=== PATIENT | female | born 1980 | race Caucasian/White ===

== ENCOUNTER 2016-10-26 16:09 | Emergency (ER) | payer OTHER ==
[2016-10-26 16:18] VITALS: RESP 16
[2016-10-26] MEDS ORDERED: NS 1,000 ML IV ONE (16:41)
--- NOTE | 2016-10-26 16:41 | EDPHY ---
H & P Time Seen by Provider: 10/26/16 16:35 HPI/ROS: Chief complaint. Dehydrated HPI. Patient is a 36-year-old female who is 11 weeks with an IVF . She was sent in by her physicians for concern of dehydration. She has had no vaginal bleeding. She has had nausea for 2 weeks and vomiting for 2 weeks with up to 5-6 mm sees per day. She has been taking B6 for about 10 days. She started taking units some 2 days ago. She also has tried acupuncture. She is not using Zofran secondary to possible heart defects as a side effect of Zofran. She has had decreased oral intake and decreased urination. She has slight right upper and left upper quadrant abdominal pain for several days. She also had a subchorionic hemorrhage 5 weeks ago then had a subsequent ultrasound which was normal. The patient is 5 para 1. ROS Constitutional. no fever/chills, no weakness Eyes. no problems with vision ENT. no sore throat, no nasal drainage Cardiovascular. no chest pain Respiratory. no shortness of breath, no cough Abdominal. Slight abdominal pain and nausea vomiting. No diarrhea . no problems urinating MS. no calf pain/swelling, no neck/back pain, no joint pain Skin. no rash Lymph. no swollen glands Neuro. no headache, no dizziness, no difficulty walking or with speech Past Medical/Surgical History: IV of , , factor to deficiency on Lovenox, hypothyroid Social History: , nonsmoker, no alcohol Smoking Status: Never smoked Physical Exam: General Appearance: Alert well-developed female mild distress vital signs are stable Eyes: Pupils equal and round no pallor or injection. ENT, mucous membranes are dry Respiratory: There are no retractions, lungs are clear to auscultation. Cardiovascular: Regular rate and rhythm. Gastrointestinal: Abdomen is soft and nontender, no masses, bowel sounds normal. Neurological: Awake and alert, sensory and motor exams grossly normal. Skin: Warm and dry, no rashes. Musculoskeletal: Neck is supple nontender. Extremities symmetrical, full range of motion. Psychiatric: Patient is oriented X 3, there is no agitation. Constitutional: Initial Vital Signs Temperature (C) 36.3 C 10/26/16 16:14 Heart Rate 62 10/26/16 16:14 Respiratory Rate 16 10/26/16 16:14 Blood Pressure 131/90 H 10/26/16 16:14 O2 Sat (%) 100 10/26/16 16:14 O2 Delivery Mode Room Air Allergies/Adverse Reactions: No Known Allergies Allergy (Unverified 02/18/11 10:49) Home Medications: Medication Instructions Recorded Levothyroxine [Synthroid] 50 mcg PO DAILY 02/18/11 Vit/Fe Fumarate/FA 1 each PO DAILY 02/18/11 [ Tablet] Aspirin [Aspirin 81mg (OTC)] 1 tab PO DAILY20 07/07/13 Docosahexanoic Acid [Algal-900 Dha] 300 mg PO DAILY 07/07/13 Heparin [Heparin Sodium] 10,000 unit SC BID 07/07/13 Medical Decision Making - Diagnostics Imaging: Limited abdominal ultrasound performed by me Indication is inability to get heart tones Suprapubic area is scan with ultrasound. Findings show good activity and reassuring heart rate approximately 140. Impression is normal intrauterine Procedures: IV with 1 L of normal saline and 1 L of D5 lactated Ringer's ED Course/Re-evaluation: Re-evaluation patient is stable. No nausea or vomiting. Re-evaluation at 7:00 p.m.. Patient has been up to urinate. Her urine sample is normal without evidence of infection. No further vomiting in the emergency department. The patient feels well enough to go home. Patient and I discussed treatment plan, criteria for return and importance of follow-up and further evaluation. She expresses understanding and agreement Differential Diagnosis: This is apparent hyperemesis gravidarum. I have considered dehydration, electrolyte abnormalities, intrauterine demise, urinary tract infection. The baby has good motion and heartbeat on my bedside ultrasound, her electrolytes are normal. No evidence for UTI. - Data Points Laboratory Results: Laboratory Results 10/26/16 16:40 10/26/16 16:40 10/26/16 10/26/16 10/26/16 17:45 16:40 16:40 WBC 9.93 10^3/uL H 10^3/uL (3.80-9.50) RBC 4.83 10^6/uL 10^6/uL (4.18-5.33) Hgb 15.2 g/dL g/dL (12.6-16.3) Hct 43.9 % % (38.0-47.0) MCV 90.9 fL fL (81.5-99.8) MCH 31.5 pg pg (27.9-34.1) MCHC 34.6 g/dL g/dL (32.4-36.7) RDW 12.1 % % (11.5-15.2) Plt Count 253 10^3/uL 10^3/uL (150-400) MPV 10.2 fL fL (8.7-11.7) Neut % (Auto) 63.3 % % (39.3-74.2) Lymph % (Auto) 27.6 % % (15.0-45.0) [place] % (Auto) 6.1 % % (4.5-13.0) Eos % (Auto) 2.4 % % (0.6-7.6) Baso % (Auto) 0.3 % % (0.3-1.7) Nucleat RBC Rel Count 0.0 % % (0.0-0.2) Absolute Neuts (auto) 6.28 10^3/uL 10^3/uL (1.70-6.50) Absolute Lymphs (auto) 2.74 10^3/uL 10^3/uL (1.00-3.00) Absolute Monos (auto) 0.61 10^3/uL 10^3/uL (0.30-0.80) Absolute Eos (auto) 0.24 10^3/uL 10^3/uL (0.03-0.40) Absolute Basos (auto) 0.03 10^3/uL 10^3/uL (0.02-0.10) Absolute Nucleated RBC 0.00 10^3/uL 10^3/uL (0-0.01) Immature Gran % 0.3 % % (0.0-1.1) Immature Gran # 0.03 10^3/uL 10^3/uL (0.00-0.10) Sodium 139 mEq/L mEq/L (134-144) Potassium 3.7 mEq/L mEq/L (3.5-5.2) Chloride 102 mEq/L mEq/L (97-110) Carbon Dioxide 23 mEq/l mEq/l (22-31) Anion Gap 14 mEq/L mEq/L (8-16) BUN 7 mg/dL mg/dL (7-23) Creatinine 0.6 mg/dL mg/dL (0.6-1.0) Estimated GFR > 60 Glucose 97 mg/dL mg/dL (70-100) Calcium 9.4 mg/dL mg/dL (8.5-10.4) Urine Color COLORLESS Urine Appearance CLEAR Urine pH 7.0 (5.0-7.5) Ur Specific [place] 1.001 L (1.002-1.030) Urine Protein NEGATIVE (NEGATIVE) Urine Ketones NEGATIVE (NEGATIVE) Urine Blood NEGATIVE (NEGATIVE) Urine Nitrate NEGATIVE (NEGATIVE) Urine Bilirubin NEGATIVE (NEGATIVE) Urine Urobilinogen NEGATIVE EU EU (0.2-1.0) Ur Leukocyte Esterase NEGATIVE (NEGATIVE) Ur Culture Indicated? NOT INDICATED (NI) Urine Glucose NEGATIVE (NEGATIVE) Medications Given: Discontinued Medications Sodium Chloride (Ns) 1,000 mls @ 0 mls/hr IV ONCE ONE PRN Reason: Wide Open Stop: 10/26/16 16:42 Last Admin: 10/26/16 16:42 Dose: 1,000 mls Departure - Departure Disposition: Home, Routine, Self-Care Clinical Impression: Hyperemesis gravidarum Condition: Good Instructions: Hyperemesis Gravidarum (ED) Additional Instructions: Frequent, small sips fluids well nauseated. Gradual diet advancement. Continue regular medications. Return for worsening symptoms. Recheck in 2 days if not able to keep fluids down and continuing to improve Referrals: Melissa Oliveira MD [Primary Care Provider] - 2-3 days, if not improved
[2016-10-26] MEDS ORDERED: D5W LR 1,000 ML IV SCH (16:45)
[2016-10-26 16:51] LABS: % IMMATURE GRANULYOCYTES 0.3 % (0.0-1.1); ABSOLUTE IMMATURE GRANULOCYTES 0.03 10^3/uL (0.00-0.10); ADD DIFF? NO; ADD MORPH? NO; ADD SCAN? NO; ATYPICAL LYMPHOCYTE FLAG 0 (0-99); FRAGMENT RBC FLAG 0 (0-99); HEMATOCRIT 43.9 % (38.0-47.0); HEMOGLOBIN 15.2 g/dL (12.6-16.3); LEFT SHIFT FLG 0 (0-99); LIPEMIA HEMOLYSIS FLAG 90 (0-99); MEAN CELL HEMOGLOBIN 31.5 pg (27.9-34.1); MEAN CELL HEMOGLOBIN CONCENTR. 34.6 g/dL (32.4-36.7); MEAN CELL VOLUME 90.9 fL (81.5-99.8); MEAN PLATELET VOLUME 10.2 fL (8.7-11.7); PLATELET CLUMPS FLAG 0 (0-99); PLATELET COUNT 253 10^3/uL (150-400); RED BLOOD CELL COUNT 4.83 10^6/uL (4.18-5.33); RED CELL DISTRIBUTION WIDTH 12.1 % (11.5-15.2)
[2016-10-26 17:06] LABS: ANION GAP 14 mEq/L (8-16); CALCIUM 9.4 mg/dL (8.5-10.4); CARBON DIOXIDE 23 mEq/l (22-31); CHLORIDE 102 mEq/L (97-110); CREATININE 0.6 mg/dL (0.6-1.0); GLOMERULAR FILTRATION RATE > 60; GLUCOSE 97 mg/dL (70-100); POTASSIUM 3.7 mEq/L (3.5-5.2); SODIUM 139 mEq/L (134-144)
[2016-10-26 18:14] LABS: COLOR COLORLESS; LEUKOCYTE ESTERASE,URINE NEGATIVE (NEGATIVE); NITRITE,URINE NEGATIVE (NEGATIVE)
[2016-10-26 19:24] VITALS: BP 122/73; PULSE 79; TEMP 97.9; O2SAT 98
== END 2016-10-26 19:24 | disposition home or self-care (01) ==
DX: O21.0 Mild hyperemesis gravidarum (principal); Z3A.11 11 weeks gestation of pregnancy; Z79.82 Long term (current) use of aspirin
CPT/HCPCS: 96365

== ENCOUNTER → 2016-11-06 | Outpatient (CLI) | payer OTHER | LOC: FIMAGING 12:02 | PROVIDERS: ATTEND Obstetrics & Gynecology | DX: O09.521 Supervision of elderly multigravida, first trimester (principal); O09.811 Supervision of pregnancy resulting from assisted reproductive technology, first trimester; Z3A.13 13 weeks gestation of pregnancy ==

== ENCOUNTER → 2016-12-25 | Outpatient (CLI) | payer OTHER | LOC: FIMAGING 10:34 | PROVIDERS: ATTEND Obstetrics & Gynecology | DX: O09.522 Supervision of elderly multigravida, second trimester (principal); O09.812 Supervision of pregnancy resulting from assisted reproductive technology, second trimester; O34.219 Maternal care for unspecified type scar from previous cesarean delivery ==

== ENCOUNTER → 2017-01-23 | Outpatient (CLI) | payer OTHER | LOC: FIMAGING 10:27 | PROVIDERS: ATTEND Obstetrics & Gynecology | DX: O09.522 Supervision of elderly multigravida, second trimester (principal); Z3A.23 23 weeks gestation of pregnancy; O99.282 Endocrine, nutritional and metabolic diseases complicating pregnancy, second trimester; E03.9 Hypothyroidism, unspecified ==

== ENCOUNTER 2017-01-29 18:59 | Observation (INO) | payer OTHER ==
--- NOTE | 2017-01-29 19:45 | OBPROG ---
OBG Progress Note Assessment/Plan: Assessment: 24 weeks feeling positive movement audible movement denies leaking bleeding cramping abdomen soft on palpation baseline heartrate 135 vs wnl consulted with dr. geronimo hernández on poc discharge to home with fu this week in the office patient in agreement with POC Plan:discharge to home with instructions fu in the office this week. Discussed reasons to return sooner. leaking bleeding cramping decreased movement. 01/29/17 19:40 Subjective: Denies feeling pain, leaking and cramping. States feeling movement FHR (bpm): 135 Membranes: Intact - Physical Exam General Appearance: WD/WN, alert, no apparent distress Respiratory: chest non-tender, lungs clear, normal breath sounds Cardiac/Chest: regular rate, rhythm Abdomen: normal bowel sounds Extremities: normal range of motion, Gumaro's sign (negative bilaterally) DTR- Lower Extremities: Knee (R): 1+, Knee (L): 1+ (no clonus bilaterally) Back: Normal inspection Skin: normal color, warm/dry Neuro/Psych: no motor/sensory deficits, alert, normal mood/affect, oriented x 3 ICD10 Worksheet Patient Problems: Problems Problem Status Onset Status post section Acute Thrombophilia Acute
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
== END 2017-01-29 19:56 | disposition home or self-care (01) ==
LOC: FLD 18:59
PROVIDERS: ADMIT Advanced Practice Midwife; ATTEND Advanced Practice Midwife
DX: Z03.79 Encounter for other suspected maternal and fetal conditions ruled out (principal); Z3A.24 24 weeks gestation of pregnancy
CPT/HCPCS: 59025; G0378

== ENCOUNTER 2017-02-13 16:33 | Observation (INO) | payer OTHER ==
[2017-02-13 17:25] LABS: % IMMATURE GRANULYOCYTES 1.1 % (0.0-1.1); ABSOLUTE IMMATURE GRANULOCYTES 0.11 10^3/uL (0.00-0.10); ADD DIFF? NO; ADD MORPH? NO; ADD SCAN? NO; ATYPICAL LYMPHOCYTE FLAG 0 (0-99); FRAGMENT RBC FLAG 0 (0-99); HEMATOCRIT 36.5 % (38.0-47.0); HEMOGLOBIN 12.4 g/dL (12.6-16.3); LEFT SHIFT FLG 0 (0-99); LIPEMIA HEMOLYSIS FLAG 90 (0-99); MEAN CELL HEMOGLOBIN 32.5 pg (27.9-34.1); MEAN CELL VOLUME 95.8 fL (81.5-99.8); MEAN PLATELET VOLUME 10.3 fL (8.7-11.7); PLATELET CLUMPS FLAG 0 (0-99); PLATELET COUNT 170 10^3/uL (150-400); RED BLOOD CELL COUNT 3.81 10^6/uL (4.18-5.33); RED CELL DISTRIBUTION WIDTH 13.1 % (11.5-15.2)
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
== END 2017-02-13 20:49 | disposition home or self-care (01) ==
LOC: FLD 16:33
PROVIDERS: ADMIT Obstetrics & Gynecology; ATTEND Obstetrics & Gynecology
DX: O71.89 Other specified obstetric trauma (principal); O09.522 Supervision of elderly multigravida, second trimester; O36.0120 Maternal care for anti-D [Rh] antibodies, second trimester, not applicable or unspecified; O09.812 Supervision of pregnancy resulting from assisted reproductive technology, second trimester; O34.219 Maternal care for unspecified type scar from previous cesarean delivery; O99.282 Endocrine, nutritional and metabolic diseases complicating pregnancy, second trimester; E03.9 Hypothyroidism, unspecified; V41 Car occupant injured in collision with pedal cycle; Y99.8 Other external cause status; Z3A.25 25 weeks gestation of pregnancy
CPT/HCPCS: 59025; G0378

== ENCOUNTER → 2017-04-05 | Outpatient (CLI) | payer OTHER | LOC: FIMAGING 09:33 | PROVIDERS: ATTEND Obstetrics & Gynecology ==

== ENCOUNTER 2017-05-11 06:45 | Observation (INO) | payer OTHER ==
--- NOTE | 2017-05-11 08:13 | GHP ---
[f rep st] PREOP HISTORY AND PHYSICAL DATE OF ADMISSION: 05/11/2017 ADMISSION DIAGNOSES: 1. Intrauterine at 39 and 1/7 weeks gestation. 2. Decreased movement. The patient is a 36-year-old 2, para 1, 0-0-1 who is 39 and 1/7 weeks' gestation. She has a history of a previous low transverse section and had been scheduled for repeat se ction this morning, but patient hopes to and so she has pushed back for a until next week. She woke up in the morning and did not notice any movement. She had orange juice and w ater, layed on her side and still did not notice any movement, so she came in for evaluation. heart tracing is reactive. There is positive accelerations, no decelerations. Patient states she is not feeling good movement. She denies any loss of fluid, headache, changes in vision, naus ea, vomiting, right upper quadrant pain. Cervical exam was deferred, as stated heart tracing is reactive. Kick counts and labor precautions were reviewed with the patient and patient was disch arged to home. /[id number]/MODL
== END 2017-05-11 07:55 | disposition home or self-care (01) ==
LOC: FLD 06:45
PROVIDERS: ADMIT Obstetrics & Gynecology; ATTEND Obstetrics & Gynecology
DX: O36.8130 Decreased fetal movements, third trimester, not applicable or unspecified (principal); O34.211 Maternal care for low transverse scar from previous cesarean delivery; O09.523 Supervision of elderly multigravida, third trimester; O09.813 Supervision of pregnancy resulting from assisted reproductive technology, third trimester; Z3A.39 39 weeks gestation of pregnancy

== ENCOUNTER 2017-05-15 15:18 | Inpatient (IN) | payer OTHER ==
[2017-05-15] MEDS ORDERED: CITRIC ACID/SODIUM CITRATE 30 ML UDCUP PO ONE ×2 (15:31→19:00)
[2017-05-15] MEDS ORDERED: LR 500 ML IV ONE (15:31)
[2017-05-15] MEDS ORDERED: LR 1,000 ML IV SCH (16:00)
[2017-05-15 16:18] LABS: % IMMATURE GRANULYOCYTES 2.1 % (0.0-1.1); ABSOLUTE IMMATURE GRANULOCYTES 0.26 10^3/uL (0.00-0.10); ADD DIFF? NO; ADD MORPH? NO; ADD SCAN? NO; ATYPICAL LYMPHOCYTE FLAG 10 (0-99); FRAGMENT RBC FLAG 0 (0-99); HEMATOCRIT 42.6 % (38.0-47.0); HEMOGLOBIN 14.8 g/dL (12.6-16.3); LEFT SHIFT FLG 20 (0-99); LIPEMIA HEMOLYSIS FLAG 90 (0-99); MEAN CELL HEMOGLOBIN 32.5 pg (27.9-34.1); MEAN CELL HEMOGLOBIN CONCENTR. 34.7 g/dL (32.4-36.7); MEAN CELL VOLUME 93.6 fL (81.5-99.8); MEAN PLATELET VOLUME 11.2 fL (8.7-11.7); PLATELET CLUMPS FLAG 20 (0-99); PLATELET COUNT 200 10^3/uL (150-400); RED BLOOD CELL COUNT 4.55 10^6/uL (4.18-5.33); RED CELL DISTRIBUTION WIDTH 12.9 % (11.5-15.2)
--- NOTE | 2017-05-15 17:31 | PREANESOB ---
Obstetric Pre-Anesthesia Info - General Info Proposed Procedure: REPEAT : 2 Para: 1 - Info Status: Full Term Monitors: External FHR Baseline (bpm): 130 FHR Pattern: Reassuring - Labor Status Cervical Dilation per last OB SVE: 0 (not checked, N/A) Section History: Repeat Indications for Current Section: Elective/Repeat, Other (Specify) ( decreased movement) Labor Epidural: No (sab for ) Anesthesia ROS: last heprin dose last night at 2215 Allergies/Adverse Reactions: Allergy/AdvReac Type Severity Reaction Status Date / Time DIOXYCYCLINE Allergy Uncoded 05/15/17 15:35 Home Medications: Medication Instructions Recorded Levothyroxine [Synthroid] 100 mcg PO DAILY 02/18/11 Vit/Fe Fumarate/FA 1 each PO DAILY 02/18/11 [ Tablet] Docosahexanoic Acid [Algal-900 Dha] 300 mg PO DAILY 07/07/13 Heparin [Heparin Sodium] 10,000 unit SC BID 07/07/13 Visit Medications: Generic Name Dose Route Start Last Admin Trade Name Freq PRN Reason Stop Dose Admin Lactated Ringer's 1,000 mls @ 125 mls/hr 05/15/17 16:00 Lr IV 11/11/17 15:59 CONT JOVITA Discontinued Medications Generic Name Dose Route Start Last Admin Trade Name Freq PRN Reason Stop Dose Admin Citric Acid/Sodium Citrate 30 ml 05/15/17 15:31 Bicitra PO 05/15/17 15:32 ONCALL ONE Lactated Ringer's 500 mls @ 0 mls/hr 05/15/17 15:31 Lr IV 05/15/17 15:32 ONCE ONE As Directed - Anesthesia History Response to Local Anesthetics: Normal Anesthesia & Operative History: No Prior Problems Family Anesthesia History: Not Applicable - Social History Substance Use/Abuse: Denies - Focused Exam Latest Vital Signs (Nursing): reviewed and okay Height/Weight (Nursing): Height 165.1 cm Weight 78.018 kg Respiratory: lungs clear Cardiovascular: regular rate, rhythm ASA Status: II (airway okay R/B/A explained and agrees to proceed) Labs: 05/15/17 15:55 Patient ABO/Rh A NEGATIVE 05/15/17 15:55
[2017-05-15] MEDS ORDERED: CITRIC ACID/SODIUM CITRATE 30 ML UDCUP ONE (18:26)
[2017-05-15] MEDS ORDERED: CEFAZOLIN 2 GM/DEXTROSE/100 ML BAG IV ONE (18:26)
[2017-05-15] MEDS ORDERED: fentaNYL 100 MCG/2 ML INJ ONE ×2 (18:54→20:16)
[2017-05-15] MEDS ORDERED: ceFAZolin 2 GM/DEXTROSE 100 ML IV ONE (19:00)
[2017-05-15] MEDS ORDERED: ONDANSETRON 4 MG/2 ML VIAL ONE (19:31)
[2017-05-15] MEDS ORDERED: epHEDrine SULFATE 10 MG/ML SYR ONE (19:31)
[2017-05-15] MEDS ORDERED: PHENYLEPHRINE HCL 100 MCG/ML SYR ONE ×2 (19:31→20:03)
[2017-05-15] MEDS ORDERED: MISOPROSTOL 200 MCG TAB ONE (19:45)
[2017-05-15] MEDS ORDERED: OXYTOCIN 100 UNITS/10 ML VIAL ONE (19:46)
[2017-05-15] MEDS ORDERED: DEXAMETHASONE 4 MG/ML VIAL ONE (20:12)
[2017-05-15] MEDS ORDERED: OXYCODONE/APAP 5/325 TAB PO PRN (20:51)
[2017-05-15] MEDS ORDERED: ONDANSETRON 4 MG/2 ML VIAL IVP PRN (20:51)
[2017-05-15] MEDS ORDERED: HYDROCODONE/APAP 5/325 TAB PO PRN (20:51)
[2017-05-15] MEDS ORDERED: NALOXONE HCL 0.4 MG/ML INJ IVP PRN (20:51)
[2017-05-15] MEDS ORDERED: fentaNYL 100 MCG/2 ML INJ IVP PRN (20:51)
[2017-05-15] MEDS ORDERED: PROMETHAZINE HCL 25 MG/ML INJ IVP PRN (21:06)
[2017-05-15] MEDS ORDERED: DOCUSATE SODIUM 100 MG CAP PO PRN (21:06)
[2017-05-15] MEDS ORDERED: BISACODYL 10 MG SUPP PR PRN (21:06)
[2017-05-15] MEDS ORDERED: MAGNESIUM HYDROXIDE 30 ML UDCUP PO PRN (21:06)
[2017-05-15] MEDS ORDERED: LACTULOSE 20 GM/30 ML UDCUP PO PRN (21:06)
[2017-05-15] MEDS ORDERED: ACETAMINOPHEN 325 MG TAB PO PRN (21:06)
[2017-05-15] MEDS ORDERED: POLYETHYLENE GLYCOL 3350 17 GM PKT PO PRN (21:06)
[2017-05-15] MEDS ORDERED: SIMETHICONE 80 MG TAB CHEW PO PRN (21:06)
--- NOTE | 2017-05-15 21:11 | OBDEL ---
Info Type: Repeat Presentation at Delivery: Vertex L&D Analgesia/Anesthesia Type: Spinal GBS+: No Intrapartum Medications: Discontinued Medications Generic Name Dose Route Start Last Admin Trade Name Colin PRN Reason Stop Dose Admin Citric Acid/Sodium Citrate 30 ml 05/15/17 15:31 05/15/17 19:00 Bicitra PO 05/15/17 15:32 30 ml ONCALL ONE Administration Citric Acid/Sodium Citrate 30 ml 05/15/17 19:00 05/15/17 19:01 Bicitra PO 05/15/17 19:01 Not Given ONCALL ONE Cefazolin Sodium/Dextrose 100 mls @ 200 mls/hr 05/15/17 19:00 05/15/17 19:01 Ancef 2 Gm (Premix) IV 05/15/17 19:29 100 mls ONCALL ONE Administration - Hospital Course Intrapartum: 05/15/17 22:06 uncomplicated repeat section Indications for Delivery: Elective Operative Report - Delivery Pre-op Diagnoses: IUP 39 5/7 weeks, history prior section Post-op Diagnoses: same as preop plus occiput posterior and nuchal cord History of Prior Section: Yes Number of Prior Sections: 1 Nulliparous Prior to Delivery: No Indications for Prior Section: Arrest of Descent, Arrest of Dilation Indications for Current Section: Elective/Repeat, Other (Specify) ( decreased movement) Procedure: Scheduled, Low Transverse Surgeon: Lottie Moreno Manager Systems: Terri Kwok (proctored by popeye toney) Anesthesiologist: Paola Flores Complications: Nucal Cord EBL: [address] [place] [address] Josue Delivery Date: 05/15/17 Delivery Time: 19:46 JONATHAN: 05/17/17 Gestational Age: 39 week(s) and 5 day(s) Sex of : Female Weight (gm): 3344 g Score (1 Min): 8 Score (5 Min): 9 ICD10 Worksheet Patient Problems: Problems Problem Status Onset Status post section Acute Thrombophilia Acute
[2017-05-15] MEDS ORDERED: KETOROLAC 30 MG/1 ML SDV ONE (21:54)
--- NOTE | 2017-05-15 22:54 | GOP ---
[f rep st] OPERATIVE REPORT DATE OF OPERATION: 05/15/2017 SURGEON: Lottie Moreno DO CYTOGENETICS TECHNOLOGIST: NENA Lua, and DANISH Machado. ANESTHESIA: Spinal with morphine. ANESTHESIOLOGIST: Paola Flores. PREOPERATIVE DIAGNOSIS: 1. Intrauterine at 39 and 5/7 weeks' gestation. 2. History of previous primary low transverse section. POSTOPERATIVE DIAGNOSIS: 1. Intrauterine at 39 and 5/7 weeks' gestation. 2. History of previous primary low transverse section. 3. Occiput posterior plus nuchal cord x1. PROCEDURE PERFORMED: FINDINGS: 1. Viable female infant in cephalic occiput posterior presentation, delivered at 19:46. Apgars wer e 8 and 9. 2. Intact placenta with 3-vessel cord. 3. Normal ovaries, uterus and tubes. SPECIMENS: Cord blood. ESTIMATED BLOOD LOSS: 800 cc. INDICATIONS: Patient is a 36-year-old 4, para 1-0-2-1 who is 39 and 5/7 weeks' gestation. She has a history of a previous low transverse section for macrosomia, arrest of desc ent and arrest of dilation. The patient had hoped to have a vaginal after section [facility], because she has had occasional episodes of decreased movement and a nonreactive nonstre ss test today despite an 8/8 biophysical profile, the patient elected to proceed with a repeat low t ransverse section today. She declined sterilization. Risks and benefits were extensively reviewed with the patient and patient was properly consented. The patient has been on Lovenox and t hen transitioned to heparin at 36 weeks for factor 2 positive. Her last dose of heparin was 10:00 p .m. last night. She has been n.p.o. since 10:00 this morning and was scheduled for section this viri jose. The patient has been properly consented. DESCRIPTION OF PROCEDURE: Patient was taken to the operating room with intravenous fluids in place. She was then seated on the operating room table where a spinal anesthesia was obtained. She was g iven 2 g of Ancef intravenously. She was then repositioned on the table in the dorsal supine positi on with a leftward tilt. Venodynes were placed on her lower extremities, and a Chopra catheter was t hen placed. She was then prepped and draped in a normal sterile fashion. Anesthesia was assessed a nd found to be adequate, and a Pfannenstiel skin incision was then made 2 fingerbreadths above the p ubic symphysis. The incision was then carried through to the underlying layer of fascia with the Ranjeet vie. The fascia was then nicked in the midline, and fascial incision was extended laterally. The s uperior aspect of the fascial incision was then grasped with Helder's, tented up and the underlying rectus muscle dissected off bluntly with the Bovie. Attention was then turned to the inferior aspec t of the fascial incision, which in a similar fashion was grasped with a Helder, tented up, and the underlying rectus muscle dissected off both bluntly and with the Bovie. The rectus muscle was then in the midline. The peritoneum was identified, tented up, and entered sharply with the Me tzenbaum scissors. The incision was extended superiorly and inferiorly with excellent visualization of the bladder. The bladder blade was then inserted. The vesicouterine peritoneum was then identi fied, tented up, and entered sharply with the Metzenbaum scissors. The incision was then was then e xtended laterally and the bladder flap was created digitally. The bladder blade was then reinserted and the uterus was then incised in a low transverse fashion with the scalpel. The uterine incision was extended laterally. Clear fluid was noted and the membranes were artificially ruptured. The i nfant's head was delivered through the incision, it was noted to be in the straight occiput posterio r presentation with a nuchal cord which was easily reduced. The viable female infant was then deliv ered without difficulty. The clear drape was raised and the blue drape was dropped and the baby was elevated for the mom to see and delayed cord clamping x1 minute was done. Cord was clamped x2 and cut. Cord blood was obtained and the was handed off to awaiting nurse practitioner. Intact placenta with 3-vessel cord delivered without difficulty. The uterus was then exteriorized and cleared of all clots and debris and wrapped in a moist laparotomy sponge. Bladder blade was th en reinserted. The uterine incision was then closed with 0 Vicryl in a running fashion. A 2nd 0 Vi cryl stitch was used to imbricate the uterine incision. Hemostasis was achieved with an additional 0 Vicryl stitch in a [id number] fashion. Ovaries, uterus, and tubes were unremarkable. The ab domen was then cleared of all clots. Uterus was then returned to the patient's abdomen. No additio nal clots were noted. Hysterotomy remained hemostatic. Peritoneum was reapproximated with 3-0 Vicr yl in a running fashion. Due to vomiting, the patient's abs were not reapproximated. The fascia was closed with 0 Vicryl in a running fashion. Subcutaneous tissue was found to be hemostatic. Yue 's fascia was reapproximated with 2-0 Vicryl in a running fashion. Subcuticular tissue was reapprox imated with 3-0 Vicryl in a running fashion. The skin was then closed with velia. Sponge, lap, a nd needle count correct x2. Patient was transported to recovery room in stable condition. /[id number]/MODL
[2017-05-15] MEDS: KETOROLAC 30 MG/1 ML SDV IVP SCH (23:38)
[2017-05-16] MEDS ORDERED: KETOROLAC 30 MG/1 ML SDV IVP SCH
[2017-05-16] MEDS: KETOROLAC 30 MG/1 ML SDV IVP SCH ×3 (05:36→15:44)
[2017-05-16] MEDS: SENNOSIDES/DOCUSATE SODIUM TAB PO SCH ×2 (08:31→21:49)
--- NOTE | 2017-05-16 08:39 | OBPP ---
Progress Note Assessment/Plan: Assessment: Post Op Day #1 s/p repeat c/s Factor II Plan: routine post op care cont lovenox 40mg SQ daily encouraged ambulation cont increase water plan to d/c home in 2-3 days 05/16/17 08:38 05/16/17 08:41 05/16/17 08:44 Subjective/ Course: 05/16/17 08:39 Pt doing well, she has no complaints reports min pain/cramping denies any heavy bleeding Objective: 05/16/17 05:45 Patient ABO/Rh A NEGATIVE 05/15/17 21:41 Temp Pulse Resp BP Pulse Ox 36.5 C 53 L 14 92/55 L 95 05/16/17 04:15 05/16/17 04:15 05/16/17 04:15 05/16/17 04:15 05/16/17 04:15 exam: CV: RRR, no murmur Resp: CTA-B Abd: soft, nontender, +BSx4, incision dressing C/D/I uterus: firm @U lochia: min rubra extremities: no edema, negative mustapha's sign Uterine Position/Fundal Height: At Umbilicus, Midline Uterine Tone: Firm
[2017-05-16] MEDS: HYDROCODONE/APAP 5/325 TAB PO PRN (21:49)
[2017-05-16] MEDS: IBUPROFEN 600 MG TAB PO PRN (21:49)
[2017-05-16] MEDS ORDERED: ENOXAPARIN 40 MG/0.4 ML SYR SC SCH (22:00)
[2017-05-16] MEDS: ENOXAPARIN 40 MG/0.4 ML SYR SC SCH (22:24)
[2017-05-17] MEDS: HYDROCODONE/APAP 5/325 TAB PO PRN ×5 (02:37→21:11)
[2017-05-17] MEDS: IBUPROFEN 600 MG TAB PO PRN ×4 (04:19→22:41)
[2017-05-17] MEDS: LEVOTHYROXINE 75 MCG TAB PO SCH (06:04)
[2017-05-17] MEDS: SENNOSIDES/DOCUSATE SODIUM TAB PO SCH ×2 (07:31→21:10)
--- NOTE | 2017-05-17 15:36 | OBPP ---
Progress Note Assessment/Plan: Assessment: 36 y/o POD # 2 s/p Rpt LTCS doing well. Plan: Bowel protocol, ambulate with assistance and abdominal binder now. support and routine POC. 05/17/17 15:34 Subjective/ Course: 05/16/17 08:39 Pt doing well today. She has good pain control with Glenvil and Ibuprofen alternating doses. She is ambulating, and voiding without difficulty and has min lochia. Baby is doing well and breast feeding is going well. 05/17/17 15:32 Objective: 05/16/17 05:45 Patient ABO/Rh A NEGATIVE 05/15/17 21:41 Temp Pulse Resp BP Pulse Ox 36.2 C 71 14 100/66 100 05/17/17 04:23 05/17/17 08:00 05/17/17 08:00 05/17/17 08:00 05/17/17 08:00 Uterine Position/Fundal Height: Umbilicus -2 Uterine Tone: Firm Physical Exam - Physical Exam Neck: non-tender, full range of motion, supple Respiratory: chest non-tender, lungs clear, normal breath sounds Cardiac/Chest: regular rate, rhythm Abdomen: normal bowel sounds, incision (c/d/i) Extremities: swelling (no), Gumaro's sign (neg)
[2017-05-17] MEDS: IRON POLYSAC/IRON HEME 28 MG TAB PO SCH (17:07)
[2017-05-17] MEDS: ENOXAPARIN 40 MG/0.4 ML SYR SC SCH (22:41)
[2017-05-18] MEDS: HYDROCODONE/APAP 5/325 TAB PO PRN ×3 (00:58→14:29)
[2017-05-18] MEDS: IBUPROFEN 600 MG TAB PO PRN ×2 (05:01→11:09)
[2017-05-18] MEDS: LEVOTHYROXINE 75 MCG TAB PO SCH (06:12)
[2017-05-18] MEDS: SENNOSIDES/DOCUSATE SODIUM TAB PO SCH (08:58)
[2017-05-18] MEDS: IRON POLYSAC/IRON HEME 28 MG TAB PO SCH (08:59)
--- NOTE | 2017-05-18 10:57 | POSTANESTH ---
Post Anesthetic Evaluation Cardiovascular Status: Normal, Stable Respiratory Status: Normal, Stable Level of Consciousness/Mental Status: Can Participate in Eval Pain Control: Adequate, Prn Tx Ordered Nausea/Vomiting Control: Adequate, Prn Tx Ordered Complications Possibly Related to Anesthesia: None Noted
[2017-05-18 11:40] VITALS: BP 102/67; PULSE 77; RESP 14; TEMP 97.6; O2SAT 95
--- NOTE | 2017-05-18 13:39 | OBPP ---
Progress Note Assessment/Plan: Assessment: pod# 3 s/p RLTCS breast feeding anemia baby - mild to moderate pulmonary stenosis Plan: routine post care and discharge instructions iron 05/18/17 13:37 Subjective/ Course: 05/16/17 08:39 Pt doing well today. She has good pain control with Brohman and Ibuprofen alternating doses. She is ambulating, and voiding without difficulty and has min lochia. Baby is doing well and breast feeding is going well. 05/17/17 15:32 05/18/17 13:39 patient is doing well. pain is well controlled. mood good. working on breast feeding. history of low milk production. trying to pump but not over do it because last time she focused a ton on breast feeding. will supplement if needed. baby diagnosed with mild to moderate pulmonic stenosis - will follow up as out patient. no bowel movement yet. Objective: 05/16/17 05:45 Patient ABO/Rh A NEGATIVE 05/15/17 21:41 Temp Pulse Resp BP Pulse Ox 36.4 C 77 14 102/67 95 05/18/17 11:38 05/18/17 11:38 05/18/17 11:38 05/18/17 11:38 05/18/17 11:38 Physical Exam - Physical Exam Neck: non-tender, full range of motion, supple Respiratory: chest non-tender, lungs clear, normal breath sounds Cardiac/Chest: normal peripheral pulses, regular rate, rhythm Abdomen: normal bowel sounds, hypoactive bowel sounds, non-tender, soft Extremities: normal range of motion, non-tender, normal inspection, normal capillary refill Skin: normal color, warm/dry, other (fundus firm and non tender) Neuro/Psych: no motor/sensory deficits, alert, normal mood/affect, oriented x 3
--- NOTE | 2017-05-18 14:02 | OBGCSDC ---
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 hx PLTCS for arrest of descent and macrosomia. had hopef for v back but got nervous with decreased movement do requested repeat c section. Intrapartum: 05/15/17 22:06 uncomplicated repeat section : 05/16/17 08:39 Pt doing well today. She has good pain control with Cantril and Ibuprofen alternating doses. She is ambulating, and voiding without difficulty and has min lochia. Baby is doing well and breast feeding is going well. 05/17/17 15:32 05/18/17 13:39 patient is doing well. pain is well controlled. mood good. working on breast feeding. history of low milk production. trying to pump but not over do it because last time she focused a ton on breast feeding. will supplement if needed. baby diagnosed with mild to moderate pulmonic stenosis - will follow up as out patient. no bowel movement yet. - Delivery Providers Surgeon: Lottie Moreno Vocational Rehabilitation Specialist: Terri Kwok (proctored by popeye toney) Anesthesiologist: Paola Flores - Delivery Number of Prior Sections: 1 Indications for Current Section: Elective/Repeat, Other (Specify) ( decreased movement) Surgical Procedures: Scheduled, Low Transverse Intra-op Complications: Nucal Cord EBL: 800 [place] Data [place] Delivery Date: 05/15/17 Delivery Time: 19:46 JONATHAN: 05/17/17 Gestational Age: 40 week(s) and 1 day(s) Sex of Infant: Female [place] Weight (gm): 3344 g Score (1 Min): 8 Score (5 Min): 9 Discharge Information - Discharge Information Prescriptions: Hydrocodone/APAP 5/325 [Cantril 5/325 (*)] 1 - 2 tab PO Q4HRS PRN #30 tab PRN Reason: Pain, Moderate Ibuprofen [Motrin (*)] 600 mg PO Q6HRS PRN #30 tab PRN Reason: Inflammation Condition: Good
== END 2017-05-18 16:30 | disposition home or self-care (01) | DRG 765 ==
LOC: FLD 15:18 → FOB 22:56
PROVIDERS: ADMIT Obstetrics & Gynecology; ATTEND Obstetrics & Gynecology
PROC: 10D00Z1 Extraction of Products of Conception, Low, Open Approach (ICD-10-PCS; principal; 2017-05-15)
DX: O76 Abnormality in fetal heart rate and rhythm complicating labor and delivery (principal); O32.8XX0 Maternal care for other malpresentation of fetus, not applicable or unspecified; O99.113 Other diseases of the blood and blood-forming organs and certain disorders involving the immune mechanism complicating pregnancy, third trimester; D68.2 Hereditary deficiency of other clotting factors; O34.211 Maternal care for low transverse scar from previous cesarean delivery; O09.813 Supervision of pregnancy resulting from assisted reproductive technology, third trimester; Z37.0 Single live birth; Z3A.39 39 weeks gestation of pregnancy
CPT/HCPCS: J0690; J1100; J1885; J2370; J2405; J2550; J2590; J3010